=== PATIENT | female | born 1975 | race Caucasian/White ===

== ENCOUNTER 2020-03-25 09:32 | Emergency (ER) | payer MEDICAID, SELFPAY ==
[~2020-03-25] VITALS: Ht 167.6 cm; Wt 68.0 kg
--- NOTE | 2020-03-25 09:55 | NUR ---
[facility], DR. ALEXANDER EXAMINING PATIENT. nO BEDS AVAILABLE IN ER. PT POSITIVE COVID-19
--- NOTE | 2020-03-25 10:14 | NUR ---
Patient presented to ER C/O SOB. Patient ambulatory to ER A&Ox4, afebrile, skin pink & warm, respirations equal bilat on RA this time, pain 3/10, nausea, denies V/D. Patient speaking in full sentences, states she is COVID-19 this week, today has difficulty breathig.
--- NOTE | 2020-03-25 10:15 | NUR ---
ER at bedside/ambulance examining patient.
[2020-03-25] MEDS ORDERED: AZITHROMYCIN 250 MG TABLET PO ONE (10:30)
[2020-03-25] MEDS ORDERED: DEXAMETHASONE SOD PHOSPHATE 10 MG/ML VIAL IM ONE (10:30)
[2020-03-25] MEDS ORDERED: cefTRIAXone 1 GM VIAL IM ONE (10:30)
[2020-03-25] MEDS ORDERED: KETOROLAC TROMETHAMINE 60 MG/2 ML VIAL IM ONE (10:45)
[2020-03-25] MEDS ORDERED: ONDANSETRON HCL 4 MG/2 ML VIAL IM ONE (10:45)
[2020-03-25 10:56] LABS: BASOPHILS % (AUTO) 0.2 % (0.0-2.0); HEMATOCRIT 35.7 % (36-48); LYMPHOCYTES # (AUTO) 1.2 K/uL (1.0-5.5); LYMPHOCYTES % (AUTO) 16.5 % (20.5-51.5); MEAN CORPUSCULAR HEMOGLOBIN 27 pg (27-31); MEAN CORPUSCULAR HGB CONC 34 % (32-36); MEAN CORPUSCULAR VOLUME 81 fL (79.0-98.0); MONOCYTES # (AUTO) 0.3 K/uL (0.0-1.0); MONOCYTES % (AUTO) 3.8 % (1.7-9.3); NEUTROPHILS # (AUTO) 5.7 K/uL (1.8-7.7); NEUTROPHILS % (AUTO) 79.5 % (40.0-70.0); PLATELET COUNT (AUTO) 159 K/uL (130-430); RED BLOOD CELL COUNT(AUTO) 4.38 MIL/uL (4.2-6.2); RED CELL DISTRIBUTION WIDTH 13.8 % (9.0-15.0); WHITE BLOOD COUNT (AUTO) 7.2 K/uL (4.8-10.8)
[2020-03-25] MEDS ORDERED: AZITHROMYCIN 250 MG TABLET ONE (10:57)
[2020-03-25 11:03] LABS: CALCIUM 8.8 mg/dL (8.4-11.0); CREATININE 1.01 mg/dL (0.55-1.30); POTASSIUM 4.3 mmol/L (3.5-5.1)
[2020-03-25 11:08] LABS: ALBUMIN 3.2 g/dL (3.4-4.8); TOTAL BILIRUBIN 0.4 mg/dL (0.0-1.0)
[2020-03-25 11:33] LABS: C-REACTIVE PROTEIN QUANT 6.4 mg/dL (0-0.5)
[2020-03-25 12:10] VITALS: BP_SYST 118
--- NOTE | 2020-03-25 12:10 | NUR ---
Patient given written and verbal discharge instructions and verbalizes understanding. ER MD discussed with patient the results and treatment provided. Patient in stable condition. ID arm band removed. Rx of Z-Jacinto, Ivermectin, prednisone, Vitamin C, Vitamin D3, Zinc, Quercetin given. Patient educated on pain management and to follow up with PMD. Pain Scale 2/10. Opportunity for questions provided and answered. Medication side effect fact sheet provided.
== END 2020-03-25 12:10 | disposition home or self-care (01) ==
LOC: SED 09:32
DX: U07.1 COVID-19 (principal); J18.9 Pneumonia, unspecified organism; R51.9 Headache, unspecified; E11.9 Type 2 diabetes mellitus without complications
CPT/HCPCS: 36415; 36600; 71045; 80053; 82550; 82728; 82803; 83605; 83615; 83880; 84484; 85025; 85379; 85384; 85610; 85730; 86140; 87040; 96372; 99284; J0696; J1100; J1885; J2405; Q0144